=== PATIENT | male | born 1985 | race Caucasian/White ===

== ENCOUNTER 2020-08-18 15:29 | Emergency (ER) | payer MEDICAID ==
[~2020-08-18] VITALS: Ht 167.6 cm; Wt 71.8 kg
--- NOTE | 2020-08-18 19:57 | NUR ---
[employer]ON GRADER , CELENA, FROM [facility] AT BEDSIDE. PT IS POLITE AND COOPERATIVE AND APPROPRIATE. REPROTS NO VISION FROM THE RIGHT EYE IT IS "COMPLETELY BLACK". PT WITH BASELINE CATARACTS AND IS LEGALLY BLIND. PT SEEN AT [facility] AND TOLD TO COME TO ER.
--- NOTE | 2020-08-18 20:43 | NUR ---
pt to ct of head, DR. CESPEDES CALLING OPTHAMALOGIST CONSULT
[2020-08-18 21:02] LABS: BASOPHILS % (AUTO) 0.4 % (0-1); EOSINOPHILS % (AUTO) 0.4 % (0-6); HEMATOCRIT 45.2 % (42.0-52.0); HEMOGLOBIN 15.4 g/dl (14.0-17.9); LYMPHOCYTES # (AUTO) 1.1 X10'3 (1.1-4.8); LYMPHOCYTES % (AUTO) 17.9 % (21-51); MEAN CORPUSCULAR HEMOGLOBIN 32.9 PG (27.0-31.0); MEAN CORPUSCULAR HGB CONC 34.2 g/dL (33.0-36.5); MEAN CORPUSCULAR VOLUME 96.4 FL (78-98); MEAN PLATELET VOLUME 7.8 FL (7.4-10.4); MONOCYTES # (AUTO) 0.5 X10'3 (0-0.9); MONOCYTES % (AUTO) 8.2 % (2-12); NEUTROPHILS # (AUTO) 4.5 X10'3 (1.8-7.7); NEUTROPHILS % (AUTO) 73.1 % (42-75); PLATELET COUNT 267 X10'3 (140-440); RED BLOOD COUNT 4.69 X10'6 (4.70-6.10); WHITE BLOOD COUNT 6.2 X10'3 (4.5-11.0)
[2020-08-18 21:11] LABS: PARTIAL THROMBOPLASTIN TIME 30 SECONDS (22-32)
[2020-08-18] MEDS ORDERED: PRED5DRO23 RIGHTEYE (21:17)
[2020-08-18] MEDS ORDERED: BRIM5DRO2 EACHEYE (21:17)
[2020-08-18] MEDS ORDERED: CYCL15DR EACHEYE (21:17)
[2020-08-18 21:53] VITALS: BP 121/86
== END 2020-08-18 21:59 | disposition home or self-care (01) ==
LOC: ER 15:30
DX: H21.01 Hyphema, right eye (principal); R62.50 Unspecified lack of expected normal physiological development in childhood; H26.9 Unspecified cataract; H54.8 Legal blindness, as defined in USA; Z79.899 Other long term (current) drug therapy
CPT/HCPCS: 36415; 70450; 85025; 85610; 85730; 99284

== ENCOUNTER 2022-11-18 12:33 | Emergency (ER) | payer MEDICAID ==
[~2022-11-18] VITALS: Ht 170.2 cm; Wt 71.0 kg
[~2022-11-18 12:33] MED LIST: BRIM5DRO2 EACHEYE; CYCL15DR EACHEYE; PRED5DRO23 RIGHTEYE
[2022-11-18] MEDS ORDERED: bacitracin 15gm ointment TP ONE (12:50)
[2022-11-18] MEDS ORDERED: LIDOcaine 1% 30ml preserv. free vial IJ ONE (12:50)
--- NOTE | 2022-11-18 13:03 | NUR ---
PT TAKEN TO CT.
[2022-11-18 14:21] VITALS: BP 117/73
== END 2022-11-18 14:30 | disposition home or self-care (01) ==
LOC: ER 12:33
DX: S01.21XA Laceration without foreign body of nose, initial encounter (principal); X58.XXXA Exposure to other specified factors, initial encounter; Y93.89 Activity, other specified; Y92.89 Other specified places as the place of occurrence of the external cause; Y99.8 Other external cause status
CPT/HCPCS: 12013; 70450; 70486; 99284; A6449